=== PATIENT | female | born 1995 | race African-American/Black ===

== ENCOUNTER → 2017-11-16 | Outpatient (CLI) | payer OTHER ==
[~2017-11-16] MED LIST: NS 100 ML IV 100 ML IV ONE
--- NOTE | 2017-11-16 11:08 | CT ---
HISTORY: Gastritis. Left lower quadrant pain. Nausea. Study: CT abdomen and pelvis with contrast. Comparison: None. Technique: Multiple axial images of the abdomen and pelvis were obtained from the lung bases to the p ubic symphysis after the administration of IV contrast. Findings: Included portions of the lung bases are clear. The gallbladder is incompletely distended. T he liver, pancreas, spleen, adrenal glands and kidneys are unremarkable in their CT appearance. There are no pericecal inflammatory changes or evidence of acute appendicitis. There is a moderate amount of stool throughout the colon which is otherwise grossly unremarkable. There is no small bowel dilata tion. The urinary bladder is well distended and grossly unremarkable. There are physiologic changes o f the uterus. There is a 17 mm involuting ovarian cyst on the left. There is a small amount of free f luid within the pelvis which is thought to be physiologic. The bony structures are grossly unchanged. IMPRESSION: Physiologic changes of the pelvis with 17 mm involuting ovarian cyst on the left. Otherwise, no evide nce of acute abdominopelvic pathology. Reported By:
== END | disposition home or self-care (01) | DRG 392 ==
LOC: RAD 09:08
PROVIDERS: ATTEND Internal Medicine
DX: R10.32 Left lower quadrant pain (principal); R11.0 Nausea; K29.60 Other gastritis without bleeding; N83.292 Other ovarian cyst, left side
CPT/HCPCS: 74177; A4222